=== PATIENT | male | born 1995 | race Caucasian/White ===

== ENCOUNTER 2022-04-05 21:08 | Emergency (ER) | payer SELFPAY ==
[~2022-04-05] VITALS: Ht 162.6 cm; Wt 62.6 kg
[2022-04-06 00:19] VITALS: BP 155/79
[2022-04-06] MEDS ORDERED: CIPR7.5D9 EACH EAR (00:51)
== END 2022-04-06 01:06 | disposition home or self-care (01) ==
LOC: ER 21:10
DX: H92.02 Otalgia, left ear (principal); N44.2 Benign cyst of testis; Z79.899 Other long term (current) drug therapy